=== PATIENT | female | born 1995 | race African-American/Black ===

== ENCOUNTER 2018-04-08 21:12 | Emergency (ER) | payer SELFPAY ==
[2018-04-08 23:05] LABS: ABSOLUTE LYMPHOCYTES (AUTO) 1.7 10^3/uL (0.5-4.7); ABSOLUTE MONOCYTES (AUTO) 1.1 10^3/uL (0.1-1.4); ABSOLUTE NEUT (AUTO) 5.8 10^3/uL (1.7-8.2); BASOPHILS % (AUTO) 0.4 % (0-2); EOSINOPHILS % (AUTO) 0.5 % (0-6); HEMATOCRIT 42.5 % (36.0-47.0); HEMOGLOBIN 14.4 g/dL (12.0-15.5); LYMPHOCYTES % (AUTO) 19.4 % (13-45); MEAN CORPUSCULAR HEMOGLOBIN 29.5 pg (27.0-33.4); MEAN CORPUSCULAR HGB CONC 33.9 g/dL (32.0-36.0); MEAN CORPUSCULAR VOLUME 87 fl (80-97); MONOCYTES % (AUTO) 12.6 % (3-13); PLATELET COUNT 336 10^3/uL (150-450); RED BLOOD COUNT 4.88 10^6/uL (3.72-5.28); RED CELL DISTRIBUTION WIDTH 14.6 % (11.5-14.0); SEGMENTED NEUTROPHILS % (AUTO) 67.1 % (42-78); TOTAL CELLS COUNTED % (AUTO) 100 %; WHITE BLOOD COUNT 8.6 10^3/uL (4.0-10.5)
[2018-04-08 23:06] LABS: APPEARANCE,URINE CLEAR; BILIRUBIN,URINE NEGATIVE (NEGATIVE); COLOR,URINE STRAW; GLUCOSE, URINE NEGATIVE (NEGATIVE); KETONES,URINE NEGATIVE (NEGATIVE); LEUKOCYTE ESTERASE,URINE NEGATIVE (NEGATIVE); NITRITE,URINE NEGATIVE (NEGATIVE); PROTEIN,URINE NEGATIVE (NEGATIVE); URINE SPECIFIC GRAVITY 1.009; UROBILINOGEN,URINE NEGATIVE mg/dL (<2.0)
[2018-04-08 23:24] LABS: ALANINE AMINOTRANSFERASE 14 U/L (9-52); ALBUMIN 4.5 g/dL (3.5-5.0); ALKALINE PHOSPHATASE 69 U/L (38-126); ANION GAP 10 (5-19); ASPARTATE AMINO TRANSFERASE 19 U/L (14-36); BILIRUBIN,DIRECT 0.2 mg/dL (0.0-0.4); BILIRUBIN,TOTAL 0.5 mg/dL (0.2-1.3); BLOOD UREA NITROGEN 10 mg/dL (7-20); CALCIUM 9.9 mg/dL (8.4-10.2); CARBON DIOXIDE 25 mmol/L (22-30); CHLORIDE 104 mmol/L (98-107); GLUCOSE 108 mg/dL (75-110); POTASSIUM 4.9 mmol/L (3.6-5.0); SODIUM 138.5 mmol/L (137-145); TOTAL PROTEIN 8.1 g/dL (6.3-8.2)
--- NOTE | 2018-04-09 00:52 | ER Document Report ---
ED General - General Chief Complaint: Nausea/Vomiting Stated Complaint: CHILLS,SWEATS,UNABLE TO HOLD FOOD DOWN Time Seen by Provider: 04/09/18 00:52 Mode of Arrival: Ambulatory Information source: Patient Notes: Patient is a 22-year-old female with no significant past medical history who presents with 1-2 days of sore throat, body aches, nonproductive cough, and intermittent fevers. Patient denies having known sick contacts, however she works at [employer] and is exposed to many people. She denies having the influenza vaccine this year. She denies chest pain, shortness of breath, abdo joseph pain, or diarrhea. Patient does report having one episode of nonbloody and nonbilious emesis prior to arrival. TRAVEL OUTSIDE OF THE [place] IN LAST 30 DAYS: No - HPI Onset: Yesterday Onset/Duration: Gradual Quality of pain: Achy, Dull Severity: Mild Pain Level: Denies Associated symptoms: Chills, Nonproductive cough, Fever, Nausea, Sore throat Exacerbated by: Denies Relieved by: Denies Similar symptoms previously: No Recently seen / treated by doctor: No - Related Data Allergies/Adverse Reactions: No Known Allergies Allergy (Verified 09/13/12 19:24) Past Medical History - General Information source: Patient - Social History Smoking Status: Never Smoker Chew tobacco use (# tins/day): No Frequency of alcohol use: None Drug Abuse: None Lives with: Family Family History: Reviewed & Not Pertinent Patient has suicidal ideation: No Patient has homicidal ideation: No - Past Medical History Cardiac Medical History: Reports: None Pulmonary Medical History: Reports: None EENT Medical History: Reports: None Neurological Medical History: Reports: None Endocrine Medical History: Reports: None Renal/ Medical History: Reports: None Malignancy Medical History: Reports: None GI Medical History: Reports: None Musculoskeletal Medical History: Reports None Skin Medical History: Reports None Psychiatric Medical History: Reports: None Traumatic Medical History: Reports: None Infectious Medical History: Reports: None Surgical Hx: Negative Past Surgical History: Reports: None - Immunizations Immunizations up to date: Yes Hx Diphtheria, Pertussis, Tetanus Vaccination: Yes History of Influenza Vaccine for 01/2017 - 06/2017 Season: No Review of Systems - Review of Systems Constitutional: See HPI, Fever, Malaise EENT: See HPI, Nose congestion, Sinus pressure, Throat pain Cardiovascular: No symptoms reported Respiratory: See HPI, Cough Gastrointestinal: No symptoms reported Genitourinary: No symptoms reported Female Genitourinary: No symptoms reported Musculoskeletal: No symptoms reported Skin: No symptoms reported Hematologic/Lymphatic: No symptoms reported Neurological/Psychological: No symptoms reported -: Yes All other systems reviewed and negative Physical Exam - Vital signs Vitals: Temp Pulse Resp BP Pulse Ox 98.5 F 89 22 H 148/94 H 97 04/08/18 21:28 04/08/18 21:28 04/08/18 21:28 04/08/18 21:28 04/08/18 21:28 Interpretation: Normal - Notes Notes: Well-appearing in no acute distress - General General appearance: Appears well, Alert - HEENT Head: Normocephalic, Atraumatic Eyes: Normal Conjunctiva: Normal Pupils: PERRL Ears: Normal External canal: Normal Tympanic membrane: Normal Nasal: Normal Mucous membranes: Moist - Respiratory Respiratory status: No respiratory distress Chest status: Nontender Breath sounds: Normal Chest palpation: Normal - Cardiovascular Rhythm: Regular Heart sounds: Normal auscultation Murmur: No - Abdominal Inspection: Normal Distension: No distension Bowel sounds: Normal Tenderness: Nontender Organomegaly: No organomegaly - Rectal Notes: Deferred - Genitourinary Notes: Deferred - Back Back: Normal, Nontender - Extremities General upper extremity: Normal inspection, Nontender, Normal color, Normal ROM, Normal temperature General lower extremity: Normal inspection, Nontender, Normal color, Normal ROM, Normal temperature, Normal weight bearing. No: Stone's sign - Neurological Neuro grossly intact: Yes Cognition: Normal Orientation: AAOx4 Asha Coma Scale Eye Opening: Spontaneous [place] Coma Scale Verbal: Oriented Asha Coma Scale Motor: Obeys Commands Asha Coma Scale Total: 15 Speech: Normal Motor strength normal: LUE, RUE, LLE, RLE Sensory: Normal - Psychological Associated symptoms: Normal affect, Normal mood - Skin Skin Temperature: Warm Skin Moisture: Dry Skin Color: Normal Course - Re-evaluation Re-evalutation: 04/09/18 02:37 Consistent with viral etiology. Patient will be given intramuscular Decadron as well as oral Zofran and will be reassessed. 04/09/18 04:06 Patient will be discharged home with return precautions and follow-up. She voices both understanding and agreeing with the plan. - Vital Signs Vital signs: Temp Pulse Resp BP Pulse Ox 98.5 F 89 22 H 148/94 H 97 04/08/18 21:28 04/08/18 21:28 04/08/18 21:28 04/08/18 21:28 04/08/18 21:28 - Laboratory Result Diagrams: 04/08/18 22:35 04/08/18 22:35 Laboratory results interpreted by me: 04/08/18 04/08/18 22:35 22:35 RDW 14.6 H Urine Blood SMALL H - Diagnostic Test Radiology reviewed: Reports reviewed Discharge - Discharge Clinical Impression: Viral syndrome Condition: Good Disposition: HOME, SELF-CARE Instructions: Viral Syndrome ([facility]) Additional Instructions: Please follow-up with your primary physician as needed. Return to the emergency department if you experience worsening symptoms, high fevers, or have any other concerns. Prescriptions: Codeine Phosphate/Guaifenesin [Cheratussin AC Syrup] 10 ml PO Q6H #240 liquid Ondansetron [Zofran Odt 4 mg Tablet] 1 tab PO Q6H PRN #30 tab.rapdis PRN Reason: For Nausea/Vomiting Forms: Return to Work Referrals: LOCALMD,NO [NO LOCAL MD] - Follow up as needed Print Language: Syriac
[2018-04-09] MEDS ORDERED: DEXAMETHASONE SOD PHOS INJ 10 MG/1 ML VIAL IV ONE (02:06)
[2018-04-09] MEDS ORDERED: ONDANSETRON HCL INJ/PF 4 MG/2 ML SDV IV ONE (02:06)
[2018-04-09] MEDS ORDERED: DEXAMETHASONE SOD PHOS INJ 10 MG/1 ML VIAL IM ONE (02:07)
[2018-04-09] MEDS ORDERED: ONDANSETRON 4 MG TAB.RAPDIS PO ONE (02:10)
[2018-04-09 04:29] VITALS: BP 129/72
== END 2018-04-09 04:29 | disposition home or self-care (01) ==
LOC: ER 21:12
DX: B34.9 Viral infection, unspecified (principal); R11.2 Nausea with vomiting, unspecified; J02.9 Acute pharyngitis, unspecified; M79.10 Myalgia, unspecified site; R05 Cough; R50.9 Fever, unspecified
CPT/HCPCS: 99283; 96372; 36415; 84703; 85025; 80053; 81001; S0119; J1100

== ENCOUNTER 2018-06-09 05:04 | Emergency (ER) | payer SELFPAY ==
[2018-06-09 05:19] VITALS: BP 149/89
--- NOTE | 2018-06-09 06:10 | RADIOLOGY REPORT (SQ) ---
EXAM DESCRIPTION: XR TOES 2 OR MORE VIEWS COMPLETED DATE/TME: 06/09/2018 05:33 CLINICAL HISTORY: 22 years, Female, trauma COMPARISON: None. NUMBER OF VIEWS: 3 TECHNIQUE: 3 views of the left great toe LIMITATIONS: None. FINDINGS: Negative for fracture or dislocation. Joint spaces are preserved. Soft tissues are unremarkable IMPRESSION: Negative exam copyright 2010 [employer]- All Rights Reserved
[2018-06-09] MEDS ORDERED: DIPH/PERTUSS(ACELL)/TETANUS VAC/PF 0.5 ML SYR (>=10YO) IM ONE (06:13)
--- NOTE | 2018-06-09 06:33 | ER Document Report ---
HPI - HPI Patient complains to provider of: left toe pain Time Seen by Provider: 06/09/18 06:12 Pain Level: 5 Context: Patient is a 22-year-old female presents to the emergency department for left toe injury. Patient states approximately 3 weeks ago she dropped a piece of metal onto her left distal toe. Patient states she has noticed intermittent bleeding from the lateral aspect of her left distal great toenail ever since. Patient states she did not presents to the emergency room for initial imaging or tetanus immunizations upon time of injury. Patient states the wound continues to intermittently bleed which is why she presents to the emergency room. Patient denies any lightheadedness, dizziness, weakness, shortness of breath. Patient denies any history of bleeding disorders. Past medical history: None Medications: None Allergies: None Patient is unsure of her l last tetanus immunization - CONSTITUTIONAL Constitutional: DENIES: Fever, Chills - REPRODUCTIVE Reproductive: DENIES: : - MUSCULOSKELETAL Musculoskeletal: REPORTS: Extremity pain - Lt great toe Past Medical History - General Information source: Patient - Social History Smoking Status: Never Smoker Frequency of alcohol use: Rare Drug Abuse: None Family History: Reviewed & Not Pertinent Patient has suicidal ideation: No Patient has homicidal ideation: No Renal/ Medical History: Denies: Hx Peritoneal Dialysis - Immunizations Immunizations up to date: Yes Hx Diphtheria, Pertussis, Tetanus Vaccination: Yes Vertical Provider Document - CONSTITUTIONAL Agree With Documented VS: Yes Notes: GENERAL: Alert, interacts well. No acute distress. HEAD: Normocephalic, atraumatic. EYES: Pupils equal, round, and reactive to light. Extraocular movements intact. ENT: Oral mucosa moist, tongue midline. NECK: Full range of motion. Supple. Trachea midline. LUNGS: Clear to auscultation bilaterally, no wheezes, rales, or rhonchi. No r espiratory distress. HEART: Regular rate and rhythm. No murmur ABDOMEN: Soft, non-tender. Non-distended. Bowel sounds present in all 4 quadrants. EXTREMITIES: Moves all 4 extremities spontaneously. No edema, normal radial and dorsalis pedis pulses bilaterally. No cyanosis. Patient's left great toe Is nonerythematous, non-ecchymotic, non-swollen. There does appear to be some dried blood noted to the lateral aspect near the nail bed. No subungual hematoma noted patient's nails are very long and curled at the end. No obvious paronychia noted. BACK: no cervical, thoracic, lumbar midline tenderness. No saddle anesthesia, normal distal neurovascular exam. NEUROLOGICAL: Alert and oriented x3. Normal speech. . PSYCH: Normal affect, normal mood. SKIN: Warm, dry, normal turgor. No rashes or lesions noted. - INFECTION CONTROL TRAVEL OUTSIDE OF THE [place] IN LAST 30 DAYS: No Course - Re-evaluation Re-evalutation: 06/09/18 06:31 Patient's imaging results showed no signs of fractures. Patient's tetanus immunization was updated. Discussed with patient that her nails are very long and it is my suspicion that every time she puts a sock or shoe on it rubs them now inevitably reopening the small laceration the patient does have near the nail bed. Patient does not bleeding in the emergency department, the skin does not appear at all infected. Discussed with patient cutting her toenails and then applying a pressure bandage to the wound. Patient voices understanding is stable for discharge. - Vital Signs Vital signs: Temp Pulse Resp BP Pulse Ox 98.2 F 95 14 149/89 H 100 06/09/18 05:16 06/09/18 05:16 06/09/18 05:16 06/09/18 05:16 06/09/18 05:16 Discharge - Discharge Clinical Impression: Injury of great toe Qualifiers: Encounter type: initial encounter Laterality: left Qualified Code(s): S99.922A - Unspecified injury of left foot, initial encounter Condition: Stable Disposition: HOME, SELF-CARE Instructions: Abrasions ([facility]) Additional Instructions: As we discussed you have been seen and treated in the emergency department today for an injury to your left great toe. At this point time the skin does not appear infected. Your x-rays revealed no signs of fractures. My recommendation would be for you to cut your toenails as they will not rub on a sock or shoe reopening your wound. Please also apply a pressure bandage. Please make sure you follow-up with your primary care provider in the next 24-48 hours or return to the emergency room for any other concerning symptoms.
== END 2018-06-09 06:47 | disposition home or self-care (01) ==
LOC: ER 05:04
DX: S91.112A Laceration without foreign body of left great toe without damage to nail, initial encounter (principal); M79.675 Pain in left toe(s); W20.8XXA Other cause of strike by thrown, projected or falling object, initial encounter; Y99.0 Civilian activity done for income or pay; Z23 Encounter for immunization
CPT/HCPCS: 90471; 90715; 99283